=== PATIENT | female | born 1970 | race African-American/Black ===

== ENCOUNTER 2017-10-05 08:26 | Outpatient (CLI) | payer OTHER ==
--- NOTE | 2017-10-06 01:14 | XRAY Report ---
EXAM: RIGHT HIP AND PELVIS RADIOGRAPHY EXAM DATE: 10/05/2017 09:03 AM. HISTORY: Right hip pain for 2 years. COMPARISONS: None. TECHNIQUE: 1 view of the pelvis and 1 view of the hip. FINDINGS: Moderate right hip degenerative joint disease with joint space narrowing, sclerosis and ost eophytes along with femoral head subchondral cyst. Mild left hip degenerative joint disease. No dislo cation. No evidence for acute fracture. No acute soft tissue findings. IMPRESSION: Moderate right and mild left hip degenerative joint disease. [facility] Referring Provider Line: [phone] SITE ID: [id number]
== END 2017-10-05 23:59 | disposition home or self-care (01) ==
LOC: DI 08:26
PROVIDERS: ATTEND Physician Assistant
DX: M16.11 Unilateral primary osteoarthritis, right hip (principal)

== ENCOUNTER 2018-01-07 08:59 | Outpatient (CLI) | payer OTHER ==
--- NOTE | 2018-01-07 14:43 | MRI Report ---
Reason: BILATERAL PRIMARY OSTEOARTHRITIS OF HIP Procedure Date: 01/07/2018 Accession Number: [id number] / [id number] Procedure: MRI - Hip RT W/O CPT Code: FULL RESULT: EXAM: RIGHT HIP MRI WITHOUT CONTRAST EXAM DATE: 01/07/2018 10:02 AM. CLINICAL HISTORY: Chronic right hip pain. COMPARISON: HIP W/PELVIS 2-3V RT 10/05/2017. TECHNIQUE: Multiplanar, multisequence T1-weighted and fluid-sensitive, small wifrn-rf-pexd sequences of the hip and large qinuu-ct-uzkk sequences of the pelvis without contrast. Other: None. FINDINGS: Bones: Subcortical cysts and marginal osteophytes at the left and right acetabulums. Small marginal osteophytes at the right femoral head. No acute fracture or bone lesions. Right Hip: No acetabular retroversion. Femoral head/neck offset is within normal limits. Small joint effusion. No loose bodies. Grade 3-4 chondromalacia at the humeral head and acetabulum. There is a linear T2 hyperintense focus at the base of the superior aspect of the right acetabulum suspicious for a tear (coronal images 18-21 of series 501). There is a 5 mm paralabral cyst adjacent to the posterior superior aspect of the acetabular labrum. The ligamentum teres is intact. Other Joints: Degenerative disk changes at L5-S1 of the lumbar spine. The sacroiliac joints are unremarkable. The pubic symphysis is unremarkable. The left hip is grossly unremarkable. Musculature: No edema or fatty atrophy. The gluteus medius and minimus tendons are normal. The visualized hamstring tendons are normal. The ischiofemoral space is normal. Pelvic Cavity: There is an approximately 1 x 0.7 cm nabothian cyst at the left posterolateral aspect of the cervix. There is an approximately 2.4 x 2.3 cm mostly T2 hyperintense focus with a fluid-fluid level at the lower uterine segment or upper cervical canal. No lymphadenopathy or free fluid. Other: The visualized sciatic nerves are unremarkable. No bursitis. The subcutaneous tissues are unremarkable. IMPRESSION: 1. Bilateral hip osteoarthritis, right more than left. 2. Small right hip joint effusion. 3. Findings suspicious for a tear at the superior aspect of the right acetabular labrum. There is a paralabral cyst adjacent to the posterior superior aspect of the right acetabular labrum. 4. Degenerative disk changes at L5-S1 of the lumbar spine. 5. Incidental finding of a 1 x 0.7 cm nabothian cyst at the cervix. There is a 2.4 x 2.3 cm mostly T2 hyperintense focus with a fluid-fluid level at the lower uterine segment or upper cervical canal which may represent a complex cyst or focal thickening of the lower uterine endometrium. Consider further evaluation with a pelvic ultrasound. [facility] MUSCULOSKELETAL RADIOLOGY SECTION
--- NOTE | 2018-01-07 17:26 | MRI Report ---
Reason: BILATERAL PRIMARY OSTEOARTHRITIS OF HIP Procedure Date: 01/07/2018 Accession Number: [id number] / [id number] Procedure: MRI - Hip LT W/O CPT Code: FULL RESULT: EXAM: LEFT HIP MRI WITHOUT CONTRAST EXAM DATE: 01/07/2018 10:43 AM. CLINICAL HISTORY: Chronic hip pain. COMPARISON: Radiograph 10/05/2017. TECHNIQUE: Multiplanar, multisequence T1-weighted and fluid-sensitive, small dcvmt-re-awor sequences of the hip and large feezt-ql-jawy sequences of the pelvis without contrast. Other: None. FINDINGS: Bones: No fractures. Periarticular cyst formation is in both acetabula. Left Hip: No acetabular retroversion. no effusion or loose bodies. The articular cartilage in the anterosuperior quadrant is moderately thinned with surface irregularity. Posteriorly, there is mild thinning and surface irregularity of the articular cartilage. Trace osteophyte formation is present. The labrum is unremarkable on this nonarthrographic study. The ligamentum teres is intact. Other Joints: The visualized lumbar spine, sacroiliac joints, symphysis pubis, and contralateral hip are unremarkable. Musculature: No edema or fatty atrophy. Mild left and minimal right gluteus medius tendinosis is seen. The visualized hamstring tendons are normal. The ischiofemoral space is normal. Pelvic Cavity: Multiple nabothian cysts are in the cervix. Other: The visualized sciatic nerves are unremarkable. No bursitis. The subcutaneous tissues are unremarkable. IMPRESSION: 1. Mild left hip osteoarthritis. 2. Mild left gluteus medius tendinosis. [facility] MUSCULOSKELETAL RADIOLOGY SECTION
== END 2018-01-07 09:00 | disposition home or self-care (01) ==
LOC: DI 08:59
PROVIDERS: ATTEND Orthopaedic Surgery
DX: M16.0 Bilateral primary osteoarthritis of hip (principal); M25.451 Effusion, right hip; M24.851 Other specific joint derangements of right hip, not elsewhere classified; M51.37 Other intervertebral disc degeneration, lumbosacral region; M67.952 Unspecified disorder of synovium and tendon, left thigh

== ENCOUNTER 2018-02-18 15:16 | Outpatient (CLI) | payer OTHER ==
--- NOTE | 2018-02-19 09:08 | Ultrasound Report ---
Reason: OTHER BENIGN NEOPLASM OF CORPUS UTERI Procedure Date: 02/18/2018 Accession Number: [id number] / [id number] Procedure: US - Pelvic w/Transvaginal CPT Code: FULL RESULT: EXAM: PELVIC ULTRASOUND EXAM DATE: 02/18/2018 04:36 PM. CLINICAL HISTORY: Benign neoplasm of corpus uteri. COMPARISON: HIP LT W/O 01/07/2018 10:04 AM. TECHNIQUE: Realtime transabdominal pelvic scan performed to identify the uterus and adnexa and as an overview of other pelvic structures, followed by transvaginal scan to provide greater detail of the uterus and adnexa, with static image documentation. FINDINGS: Uterus: 12.5 x 3.9 x 6.3 cm, volume 160 cc. Anteverted position. Normal overall size and echotexture. Masses: The mass with fluid fluid level seen on MRI is not redemonstrated. Endometrium: Up to 11 mm. Within the fundus is focal echogenic thickening of the endometrium with suggestion of a rounded mass which does not demonstrate vascularity by color Doppler interrogation. Cervix: A 1 cm hypoechoic nabothian cyst is seen in the cervix corresponding to the nabothian cyst seen on MRI. Right Ovary: 3.2 x 1.8 x 1.9 cm, volume 5.7 cc. Normal echotexture and blood flow. Left Ovary: 2.7 x 1.4 x 1.5 cm, volume 2.9 cc. Normal echotexture and blood flow. Free Fluid: None. Other: None. IMPRESSION: 1. The 2.4 cm focus with fluid fluid level identified within the lower uterine segment just above the cervix on MRI is not redemonstrated. Recommendation: Correlation of today's ultrasound with careful review of the previous MRI, which was not tailored towards the finding, reveals the following: The finding is contiguous with the endometrium as seen on images 15 and 16 of series 401. The finding is midline/central to the uterus in long and short axis. The finding is contiguous with the vaginal canal through the cervix on images 18 through 25 series 801. Please correlate the timing of the MRI examination to the patient's menses. The MRI appearance is compatible with blood products and the location is compatible with menses. 2. An avascular by color Doppler round 1 cm focus within the fundal endometrium may similarly represent blood products though a polyp is not excluded. This could be clarified by a correlation to menses combined with a follow-up ultrasound examination. Alternatively, if suspicion is high, sonohysterogram could clarify the finding. CHRIS The above findings were discussed with the nurse of Mitch Patel by Dr. Sherman Flowers at 08:43 hrs on 02/19/18. Dr. Patel was presently in the operating room. She assured me that she would relay the finding and the request to communicate directly physician to physician on a nonurgent basis.
== END 2018-02-18 15:17 | disposition home or self-care (01) ==
LOC: DI 15:16
PROVIDERS: ATTEND Obstetrics & Gynecology
DX: D26.1 Other benign neoplasm of corpus uteri (principal)
CPT/HCPCS: 76830; 76856

== ENCOUNTER 2018-05-07 06:19 | Day surgery (SDC) | payer OTHER ==
[2018-05-07] MEDS ORDERED: LACTATED RINGERS 1,000 ML IV ONE (06:39)
[2018-05-07 07:07] LABS: BASOPHILS # (AUTO) 0.1 10^3/uL (0.0-0.1); EOSINOPHILS # (AUTO) 0.7 10^3/uL (0.0-0.7); EOSINOPHILS % (AUTO) 9.8 %; HGB - HEMOGLOBIN 10.8 g/dL (12.0-16.0); LYMPHOCYTES # (AUTO) 2.3 10^3/uL (1.5-3.5); MEAN CORPUSCULAR HEMOGLOBIN 25.7 pg (27.0-31.0); MEAN CORPUSCULAR HGB CONC 31.7 g/dL (32.0-36.0); MEAN CORPUSCULAR VOLUME 80.9 fL (81.0-99.0); MEAN PLATELET VOLUME 8.2 fL (7.9-10.8); MONOCYTES # (AUTO) 0.6 10^3/uL (0.0-1.0); NEUTROPHILS # (AUTO) 3.9 10^3/uL (1.5-6.6); NEUTROPHILS % (AUTO) 51.2 %; PLT - PLATELET COUNT 384 10^3/uL (130-450); RED CELL DISTRIBUTION WIDTH 15.7 % (12.0-15.0); WHITE BLOOD COUNT 7.6 x10^3/uL (4.8-10.8)
[2018-05-07 07:15] LABS: BUN - BLOOD UREA NITROGEN 6 mg/dL (6-20); CALCIUM 8.8 mg/dL (8.5-10.3); CARBON DIOXIDE - CO2 26 mmol/L (21-32); CHLORIDE 108 mmol/L (101-111); CREATININE 0.6 mg/dL (0.4-1.0); GFR - MDRD 129 (>89); GLUCOSE 101 mg/dL (70-100); SODIUM 140 mmol/L (135-145)
--- NOTE | 2018-05-07 07:27 | ANESTHESIA ---
Pre-Anesthesia VS, & Labs - Diagnosis post coital spotting - Procedure hysterscopy, D&C Vital Signs: Temp Pulse Resp BP Pulse Ox 36.3 C L 76 16 162/98 H 97 05/07/18 06:57 05/07/18 06:57 05/07/18 06:57 12 06:57 05/07/18 06:57 Height 5 ft 4 in Weight (kg) 118.1 kg Body Mass Index 44.6 - NPO >8 hours - Is Patient ?: No - Lab Results Current Lab Results: Laboratory Tests 05/07/18 06:57: WBC 7.6, RBC 4.20, Hgb 10.8 L, Hct 34.0 L, MCV 80.9 L, MCH 25.7 L, MCHC 31.7 L, RDW 15.7 H, Plt Count 384, MPV 8.2, Neut # (Auto) 3.9, Lymph # (Auto) 2.3, [place] # (Auto) 0.6, Eos # (Auto) 0.7, Baso # (Auto) 0.1, Absolute Nucleated RBC 0.00, Nucleated RBC % 0.0 05/07/18 06:57: Sodium 140, Potassium 3.5, Chloride 108, Carbon Dioxide 26, Anion Gap 6.0, BUN 6, Creatinine 0.6, Estimated GFR (MDRD) 129, Glucose 101 H, Calcium 8.8 Fish Bones: 05/07/18 06:57 05/07/18 06:57 Home Medications and Allergies Home Medications: Ambulatory Orders amLODIPine [Norvasc] 5 mg PO ONCE 05/07/18 amLODIPine [Norvasc] 5 mg PO ONCE 05/07/18 Allergies/Adverse Reactions: Allergies Allergy/AdvReac Type Severity Reaction Status Date / Time No Known Drug Allergies Allergy Verified 05/07/18 06:56 Anes History & Medical History - Anesthetic History Anesthesia Complications: reports: No previous complications - Medical History Cardiovascular: reports: Hypertension Pulmonary: reports: Asthma Gastrointestinal: reports: None, Other (Morbidly obese) Urinary: reports: None Neuro: reports: None Musculoskeletal: reports: Osteoarthritis Endocrine/Autoimmune: reports: None Skin: reports: None Smoking Status: Never smoker - Surgical History General: Other (Lap Band) Gynecologic: section, Tubal ligation, Breast reduction Exam General: Alert, Oriented x3, Cooperative, No acute distress Dental: WNL Mouth Openin Fingerbreadth Neck Mobility: Normal Mallampati classification: II Thyromental Distance: 4-6 cm Respiratory: Lungs clear, Normal breath sounds, No respiratory distress, No accessory muscle use Cardiovascular: Regular rate, Normal S1, Normal S2, No murmurs Mental/Cognitive Status: Alert/Oriented X3, Normal for patient Plan Anesthesia Type: General Consent for Procedure(s) Verified and Reviewed: Yes Code Status: Attempt Resuscitation ASA classification: 2-Mild systemic disease Is this case an emergency?: No
[2018-05-07 07:49] LABS: HCG,QUALITATIVE BLOOD NEGATIVE
[2018-05-07] MEDS ORDERED: fentaNYL 100 MCG/2 ML VIAL IVP ONE (08:10)
[2018-05-07] MEDS ORDERED: ONDANSETRON 4 MG/2 ML VIAL IVP ONE (08:10)
[2018-05-07] MEDS ORDERED: PROPOFOL 200 MG/20 ML VIAL IVP ONE (08:10)
[2018-05-07] MEDS ORDERED: MIDAZOLAM 2 MG/2 ML VIAL IVP ONE (08:10)
[2018-05-07] MEDS ORDERED: KETOROLAC 30 MG/ML VIAL IVP ONE (08:10)
--- NOTE | 2018-05-07 08:58 | OPERATIVE REPORT ---
Operative Report - General Procedure Date: 05/07/18 Planned Procedure: Hysterscopy with D&C Pre-Op Diagnosis: endometrial polyp Procedure Performed: hysterscopy with D&C Post Op Diagnosis: same - Procedure Note Primary Surgeon: Mitch Patel MD Anesthesia Provider: Radha Muro CRNA Anesthesia Technique: General LMA Pathology: endometrial currettings Estimated Blood Loss (mL): 10 Complications: None - Other Other Information/Narrative: 2400 NS in 2100 NS out Dictation # [id number]
[2018-05-07] MEDS ORDERED: HYDROmorphone 0.5 MG/0.5 ML SYRINGE IVP PRN (09:05)
[2018-05-07] MEDS ORDERED: LORazepam 2 MG/ML VIAL IVP PRN (09:05)
[2018-05-07] MEDS ORDERED: HYDROcod/ACETAM 5/325 MG TABLET PO PRN (09:05)
[2018-05-07] MEDS ORDERED: ONDANSETRON 4 MG/2 ML VIAL IVP PRN (09:05)
[2018-05-07 10:04] VITALS: BP 144/96
--- NOTE | 2018-05-07 11:58 | OPERATIVE REPORT ---
DATE OF SERVICE: 05/07/2018 Physician: Mitch Patel MD PREOPERATIVE DIAGNOSIS: Endometrial polyp. POSTOPERATIVE DIAGNOSIS: Endometrial polyp. PROCEDURE: Hysteroscopy with D and C. SURGEON: Mitch Patel MD. ANESTHESIA: General via LMA with Radha Muro CRNA. FINDINGS: Uterus sounded to 9 cm. Upon introducing the hysteroscope, there was evidence of what appeared to be a very small sessile polyp. There was no evidence of any abnormal vascularity. DESCRIPTION OF PROCEDURE: Following adequate general anesthesia via LMA, patient was placed in the dorsal lithotomy position in [facility]. Pelvic examination under anesthesia was somewhat limited secondary to abdominal wall thickness. At this point, she was prepped and draped in the usual fashion. A speculum was placed in the vagina, cervix was visualized, grasped with a single- tooth tenaculum. The uterus was then dilated up to 4 mm and then sounded to 8; it was dilated the rest of the way to 6 mm. A MyoSure hysteroscope was attempted to be passed, but this was not successful so it was dilated up to 7 mm. This was then accomplished. The endometrial cavity was visualized in its entirety. There appeared to be a small sessile polyp. At this point, the MyoSure was utilized to curette the entire endometrial cavity. This was then sharply dilated up to 1 cm and then sharply curetted in all 4 quadrants. The additional dilatation was done because of suspicion of possible stenotic cervix secondary to retained menstrual flow on a previous MRI. At this point, the procedure was terminated, the cervix was released from the single-tooth tenaculum; the I's and O's were measured manually, and she was noted to have 2400 mL of normal saline in with 2100 mL of normal saline out. Patient tolerated the procedure well and was taken to recovery in stable condition. TD: 05/07/2018 09:12 ANDRES
== END 2018-05-07 06:20 | disposition home or self-care (01) ==
LOC: SDS 06:19 → MERGE 07:30
PROVIDERS: ATTEND Obstetrics & Gynecology
PROC: 0UDB8ZX Extraction of Endometrium, Via Natural or Artificial Opening Endoscopic, Diagnostic (ICD-10-PCS; principal; 2018-05-07 07:30)
DX: N93.0 Postcoital and contact bleeding (principal); N84.0 Polyp of corpus uteri; J45.909 Unspecified asthma, uncomplicated; I10 Essential (primary) hypertension; E66.01 Morbid (severe) obesity due to excess calories; Z68.42 Body mass index [BMI] 45.0-49.9, adult; M19.90 Unspecified osteoarthritis, unspecified site
CPT/HCPCS: 36415; 58558; 80048; 84703; 85025; 86850; 86900; 86901; J7120; 81025

== ENCOUNTER 2018-11-21 15:43 | Outpatient (CLI) | payer BC ==
--- NOTE | 2018-11-22 00:30 | Ultrasound Report ---
Reason: LEFT LOWER EXT SWELLING Procedure Date: 11/21/2018 Accession Number: [id number] / [id number] Procedure: US - Duplex Ext Veins Left CPT Code: FULL RESULT: EXAM: LEFT LOWER EXTREMITY VENOUS ULTRASOUND EXAM DATE: 11/21/2018 04:31 PM. CLINICAL HISTORY: LEFT LOWER EXT SWELLING. COMPARISON: None. TECHNIQUE: Real-time sonographic vascular imaging was performed by the cook helper dessert through the lower extremity utilizing both color-flow and Doppler spectral analysis. Multiple telephone services sales representative static images were saved for review. FINDINGS: Common Femoral Vein (CFV): Normal. CFV-GSV Junction: Normal. Profunda Femoral Vein (PFV): Normal. Femoral Vein (FV) Prox: Normal. Femoral Vein (FV) Mid: Normal. Femoral Vein (FV) Dist: Normal. Popliteal Vein: Normal. Posterior Tibial Veins: Normal. Peroneal Veins: Normal. Contralateral Side CFV: Normal. Other: None. IMPRESSION: No evidence for deep venous thrombosis. [facility]
== END 2018-11-21 15:44 | disposition home or self-care (01) ==
LOC: DI 15:43
PROVIDERS: ATTEND Specialist
DX: R60.0 Localized edema (principal)

== ENCOUNTER 2019-01-07 11:53 | Outpatient (CLI) | payer BC ==
[2019-01-07 12:09] LABS: BASOPHILS # (AUTO) 0.1 10^3/uL (0.0-0.1); BASOPHILS % (AUTO) 1.1 %; EOSINOPHILS # (AUTO) 0.7 10^3/uL (0.0-0.7); EOSINOPHILS % (AUTO) 7.9 %; HGB - HEMOGLOBIN 10.4 g/dL (12.0-16.0); LYMPHOCYTES # (AUTO) 2.8 10^3/uL (1.5-3.5); MEAN CORPUSCULAR HEMOGLOBIN 24.9 pg (27.0-31.0); MEAN CORPUSCULAR HGB CONC 29.8 g/dL (32.0-36.0); MEAN CORPUSCULAR VOLUME 83.5 fL (81.0-99.0); MEAN PLATELET VOLUME 9.7 fL (7.9-10.8); MONOCYTES # (AUTO) 0.7 10^3/uL (0.0-1.0); NEUTROPHILS % (AUTO) 48.6 %; PLT - PLATELET COUNT 437 10^3/uL (130-450); RED BLOOD COUNT 4.18 10^6/uL (4.20-5.40); RED CELL DISTRIBUTION WIDTH 15.8 % (12.0-15.0); WHITE BLOOD COUNT 8.2 x10^3/uL (4.8-10.8)
[2019-01-07 12:13] LABS: INR 1.3 (0.8-1.2)
[2019-01-07 12:20] LABS: PARTIAL THROMBOPLASTIN TIME 32.1 secs (24.9-33.3)
[2019-01-07 12:43] LABS: ALBUMIN 3.6 g/dL (3.2-5.5); ALBUMIN/GLOBULIN RATIO 0.9 (1.0-2.2); BILIRUBIN,TOTAL 0.8 mg/dL (0.2-1.0); CALCIUM 8.8 mg/dL (8.5-10.3); CREATININE 0.6 mg/dL (0.4-1.0); TOTAL PROTEIN 7.5 g/dL (6.7-8.2)
[2019-01-07 12:45] LABS: HB2 TOTAL 10.8 g/dL; HEMOGLOBIN A1C 0.41 g/dL; HEMOGLOBIN A1C % 5.6 % (4.6-6.2)
== END 2019-01-07 11:54 | disposition home or self-care (01) ==
LOC: LAB 11:53
PROVIDERS: ATTEND Surgery
DX: Z01.812 Encounter for preprocedural laboratory examination (principal); E11.9 Type 2 diabetes mellitus without complications
CPT/HCPCS: 36415; 80053; 83036; 85025; 85610; 85730

== ENCOUNTER 2020-12-27 12:58 | Outpatient (CLI) | payer BC ==
[2020-12-27] MEDS ORDERED: ALBUTEROL 1 PUFF INH STA (14:51)
== END 2020-12-27 12:59 | disposition home or self-care (01) ==
LOC: RT 12:58
PROVIDERS: ATTEND Internal Medicine
DX: J45.30 Mild persistent asthma, uncomplicated (principal)
CPT/HCPCS: 94060; 94664

== ENCOUNTER 2021-04-03 08:14 | Outpatient (CLI) | payer BC ==
--- NOTE | 2021-04-03 09:55 | XRAY Report ---
PROCEDURE: Chest 2 View X-Ray INDICATIONS: ASTHMA TECHNIQUE: 2 view(s) of the chest. COMPARISON: None. FINDINGS: Surgical changes and devices: None. Lungs and pleura: No pleural effusions or pneumothorax. Lungs are clear. Mediastinum: Mediastinal contours are normal. Heart size is normal. Bones and chest wall: No suspicious bony abnormalities. Soft tissues appear unremarkable. IMPRESSION: No acute cardiopulmonary abnormality. Reviewed by: Blaise Bosch on 04/03/2021 9:53 AM [facility] Approved by: Blaise Bosch on 04/03/2021 9:53 AM [facility] Station ID: [id number]
== END 2021-04-03 08:15 | disposition home or self-care (01) ==
LOC: DI 08:14
PROVIDERS: ATTEND Internal Medicine
DX: J45.909 Unspecified asthma, uncomplicated (principal)

== ENCOUNTER 2021-04-04 08:32 | Outpatient (CLI) | payer BC ==
--- NOTE | 2021-04-05 14:11 | Mammography Report ---
BILATERAL DIGITAL SCREENING MAMMOGRAM 3D/2D: 04/04/2021 CLINICAL: Family history of breast cancer. Routine screening. Comparison is made to exams dated: 05/12/2015 mammogram and 09/19/2009 mammogram - [facility]. There are scattered fibroglandular elements in both breasts. There are benign calcifications in the right breast. There also are benign post operative findings i n both breasts. No significant masses, calcifications, or other findings are seen in either breast. There has been no significant interval change. IMPRESSION: BENIGN There is no mammographic evidence of malignancy. A 1 year screening mammogram is recommended. This exam was interpreted at Station ID: [id number]. NOTE: For mammograms, a report in lay terms will be sent to the patient. Approximately 15% of breast malignancies will not be visualized mammographically. In the management of a palpable breast mass, a negative mammogram must not discourage biopsy of a clinically suspicious lesion. Electronically Signed By: Violette cervantes/jesus alberto:04/04/2021 11:45:49 ACR BI-RADS Category 2: Benign Finding(s) 3342F PARENCHYMAL PATTERN: (A) - The breast(s) demonstrate(s) scattered fibroglandular densities. BI-RADS CATEGORY: (2) - 2 RECOMMENDATION: (ANNUAL) - Recommend routine annual screening mammography. [id number] 1 year screening LATERALITY: (B)
== END 2021-04-04 08:33 | disposition home or self-care (01) ==
LOC: DI.N 08:32
DX: Z12.31 Encounter for screening mammogram for malignant neoplasm of breast (principal); Z80.3 Family history of malignant neoplasm of breast

== ENCOUNTER 2022-09-19 15:14 | Outpatient (CLI) | payer BC ==
--- NOTE | 2022-09-21 09:50 | Mammography Report ---
BILATERAL DIGITAL SCREENING MAMMOGRAM 3D/2D: 09/19/2022 CLINICAL: Routine screening. Comparison is made to exams dated: 04/04/2021 mammogram, 05/12/2015 mammogram, and 09/19/2009 mammogr am - [facility]. There are scattered areas of fibroglandular density in both breasts (category b / 25%-50% glandular t issue). There are benign calcifications in the right breast. There also are benign post operative findings i n both breasts. No significant masses, calcifications, or other findings are seen in either breast. There has been no significant interval change. IMPRESSION: BENIGN There is no mammographic evidence of malignancy. A 1 year screening mammogram is recommended. Based on the Tyrer Cuzick model (a risk assessment model) the patients lifetime risk is 13.6% and he r 10 year risk is 3.7%. According to the ACR, ACS, and NCCN guidelines, an annual breast MRI exam aayush ng with mammogram is recommended if the patients lifetime risk is 20% or greater. This exam was interpreted at Station ID: [id number]. NOTE: For mammograms, a report in lay terms will be sent to the patient. Approximately 15% of breast malignancies will not be visualized mammographically. In the management of a palpable breast mass, a negative mammogram must not discourage biopsy of a clinically suspicious lesion. Electronically Signed By: Jaime kumar/jesus alberto:09/20/2022 09:22:07 letter sent: No_Letter ACR BI-RADS Category 2: Benign Finding(s) 3342F PARENCHYMAL PATTERN: (A) - The breast(s) demonstrate(s) scattered fibroglandular densities. BI-RADS CATEGORY: (2) - 2 Mammogram [id number] 1 year screening LATERALITY: (B)
== END 2022-09-19 15:15 | disposition home or self-care (01) ==
LOC: DI 15:14
PROVIDERS: ATTEND Physician Assistant
DX: Z12.31 Encounter for screening mammogram for malignant neoplasm of breast (principal)

== ENCOUNTER 2023-12-09 07:06 | Outpatient (CLI) | payer BC ==
[2023-12-09 07:38] LABS: BASOPHILS # (AUTO) 0.1 10^3/uL (0.0-0.1); EOSINOPHILS # (AUTO) 0.8 10^3/uL (0.0-0.7); EOSINOPHILS % (AUTO) 10.5 %; HCT - HEMATOCRIT 40.2 % (37.0-47.0); HGB - HEMOGLOBIN 12.4 g/dL (12.0-16.0); LYMPHOCYTES % (AUTO) 27.7 %; MEAN CORPUSCULAR HEMOGLOBIN 28.1 pg (27.0-31.0); MEAN CORPUSCULAR HGB CONC 30.8 g/dL (32.0-36.0); MEAN CORPUSCULAR VOLUME 91.2 fL (81.0-99.0); MEAN PLATELET VOLUME 9.9 fL (7.9-10.8); MONOCYTES # (AUTO) 0.5 10^3/uL (0.0-1.0); MONOCYTES % (AUTO) 6.3 %; NEUTROPHILS % (AUTO) 54.1 %; PLT - PLATELET COUNT 354 10^3/uL (130-450); RED BLOOD COUNT 4.41 10^6/uL (4.20-5.40); RED CELL DISTRIBUTION WIDTH 13.2 % (12.0-15.0); WHITE BLOOD COUNT 7.3 x10^3/uL (4.8-10.8)
[2023-12-09 07:49] LABS: ALBUMIN/GLOBULIN RATIO 1.3 (1.0-2.2); ALKALINE PHOSPHATASE 76 IU/L (42-121); ALT ALANINE AMINOTRANSFERASE 17 IU/L (10-60); AST ASPARTATE AMINOTRANSFERASE 21 IU/L (10-42); BUN - BLOOD UREA NITROGEN 6 mg/dL (6-20); CALCIUM 9.6 mg/dL (8.5-10.3); CARBON DIOXIDE - CO2 32 mmol/L (21-32); CHLORIDE 105 mmol/L (101-111); CHOL/HDL RATIO 3.8 (<4.4); CHOLESTEROL 192 mg/dL; CREATININE 0.6 mg/dL (0.6-1.3); GFR - MDRD 126 (>89); GLUCOSE 95 mg/dL (74-104); HDL CHOLESTEROL 51 mg/dL; LDL CHOLESTEROL,CALCULATED 127 mg/dL; LDL/HDL RATIO 2.5 (<4.4); POTASSIUM 3.3 mmol/L (3.5-4.5); SODIUM 141 mmol/L (135-145); TOTAL PROTEIN 7.2 g/dL (6.4-8.9); TRIGLYCERIDES 71 mg/dL; VLDL CHOLESTEROL 14 mg/dL
[2023-12-09 08:04] LABS: THYROID STIMULATING HORMONE 1.23 uIU/mL (0.34-5.60)
[2023-12-09 14:58] LABS: ESTIMATED AVERAGE GLUCOSE 80 mg/dL (70-100); HEMOGLOBIN A1c% 4.4 % (4.27-6.07)
== END 2023-12-09 07:07 | disposition home or self-care (01) ==
LOC: LAB 07:06
PROVIDERS: ATTEND Student in an Organized Health Care Education/Training Program
DX: I10 Essential (primary) hypertension (principal); Z13.6 Encounter for screening for cardiovascular disorders; Z79.899 Other long term (current) drug therapy; E66.01 Morbid (severe) obesity due to excess calories
CPT/HCPCS: 36415; 80053; 80061; 83036; 83721; 84443; 85025